=== PATIENT | female | born 1970 | race Caucasian/White ===

== ENCOUNTER 2016-07-11 17:05 | Emergency (ER) | payer BC, OTHER ==
[~2016-07-11] VITALS: Ht 157.5 cm; Wt 60.1 kg
[~2016-07-11 17:05] MED LIST: PROBCAP11 PO
[2016-07-11 17:18] VITALS: BP 125/88; PULSE 70; RESP 16; TEMP 97.9; O2SAT 100
[2016-07-11] MEDS ORDERED: SODIUM CHLOR 0.9% 1000 ML INJ 1,000 ML IV SCH (17:43)
[2016-07-11] MEDS ORDERED: ONDANSETRON HCL 4 MG/2 ML VIAL IVP ONE (17:45)
[2016-07-11] MEDS ORDERED: PANTOPRAZOLE SODIUM 40 MG VIAL IVP ONE (17:45)
--- NOTE | 2016-07-11 17:52 | PD ---
HPI Chief Complaint: Abdominal Pain Time Seen by Provider: 17:33 Travel History International Travel<30 days: No Contact w/Intl Traveler<30days: No Traveled to known affect area: No History of Present Illness HPI 45-year-old female complains of abdominal pain with nausea. Patient states that she started having abdominal bloating with low abdominal pressure for the past week. Patient started having sharp low abdominal pain this afternoon. Patient states that the pain was severe sharp pain constant pain localized to lower abdomen. Patient denies any pain radiation. Patient denies any vomiting or diarrhea. Patient denies any dysuria or frequency. Patient denies any vaginal discharge or bleeding. Patient status post endometrial ablation and tubal ligation in the past. Patient denies any history of GI issue. Patient denies any blood or mucus in the stool. On a scale of 1-10 the pain is a 3. Patient has history of irritable bowel syndrome. PFSH Past Medical History Cancer: No Diabetes: No Glaucoma: No Hepatitis: No Hiatal Hernia: No Hypertension: No Thyroid Disease: No ?: Not LMP: 2 weeks ago irregular Past Surgical History Gynecologic Surgery: Yes (D&C; TUBAL LIGATION) Social History Alcohol Use: No Tobacco Use: No Allergies-Medications (Allergen,Severity, Reaction): Coded Allergies: Erythromycin (Verified Allergy, Intermediate, vomiting, 07/11/16) Codeine (Verified Adverse Reaction, Mild, VOMITING, 07/11/16) Reported Meds & Prescriptions Reported Meds & Active Scripts Active Reported [Probiotic] 1 Cap PO DAILY Review of Systems General / Constitutional: No: Fever Eyes: No: Visual changes HENT: No: Headaches Cardiovascular: No: Chest Pain or Discomfort Respiratory: No: Shortness of Breath Gastrointestinal: Positive: Nausea, Abdominal Pain Genitourinary: No: Dysuria Musculoskeletal: No: Pain Skin: No Rash Neurologic: No: Weakness Psychiatric: No: Depression Endocrine: No: Polydipsia Hematologic/Lymphatic: No: Easy Bruising Physical Exam Narrative GENERAL: Well-nourished, well-developed patient. SKIN: Warm and dry. HEAD: Normocephalic. EYES: No scleral icterus. No injection or drainage. NECK: Supple, trachea midline. No JVD or lymphadenopathy. CARDIOVASCULAR: Regular rate and rhythm without murmurs, gallops, or rubs. RESPIRATORY: Breath sounds equal bilaterally. No accessory muscle use. GASTROINTESTINAL: Abdomen soft, nondistended. Patient has mild diffuse tenderness over the abdomen. No rebound tenderness. No mass. MUSCULOSKELETAL: No cyanosis, or edema. BACK: Nontender without obvious deformity. No CVA tenderness. Neurologic exam normal. Data Data Last Documented VS Vital Signs Date Time Temp Pulse Resp B/P Pulse Ox O2 Delivery O2 Flow Rate FiO2 07/11/16 19:20 82 16 142/77 100 Room Air 07/11/16 17:18 97.9 Orders Complete Blood Count With Diff (07/11/16 17:43) Lipase (07/11/16 17:43) Prothrombin Time / Inr (Pt) (07/11/16 17:43) Act Partial Throm Time (Ptt) (07/11/16 17:43) Urinalysis - C+S If Indicated (07/11/16 17:43) Ct Abd/Pel W Iv Contrast(Rout) (07/11/16 17:43) Iv Access Insert/Monitor (07/11/16 17:43) Ecg Monitoring (07/11/16 17:43) Oximetry (07/11/16 17:43) Ondansetron Inj (Zofran Inj) (07/11/16 17:45) Pantoprazole Inj (Protonix Inj) (07/11/16 17:45) Sodium Chlor 0.9% 1000 Ml Inj (Ns 1000 M (07/11/16 17:43) Comprehensive Metabolic Panel (07/11/16 17:52) Iohexol 350 Inj (Omnipaque 350 Inj) (07/11/16 19:53) Labs Laboratory Tests Test 07/11/16 07/11/16 17:48 17:52 Urine Collection Type VOIDED Urine Color STRAW Urine Turbidity CLEAR Urine pH 7.0 Urine Specific [place] 1.008 Urine Protein NEG mg/dL Urine Glucose (UA) NEG mg/dL Urine Ketones NEG mg/dL Urine Occult Blood TRACE Urine Nitrite NEG Urine Bilirubin NEG Urine Leukocyte Esterase NEG Urine RBC 0-2 /hpf Urine Squamous Epithelial 0-2 /hpf Cells Microscopic Urinalysis Comment CULT NOT INDICATED White Blood Count 4.7 TH/MM3 Red Blood Count 4.33 MIL/MM3 Hemoglobin 13.0 GM/DL Hematocrit 39.1 % Mean Corpuscular Volume 90.1 FL Mean Corpuscular Hemoglobin 30.0 PG Mean Corpuscular Hemoglobin 33.3 % Concent Red Cell Distribution Width 12.1 % Platelet Count 201 TH/MM3 Mean Platelet Volume 8.3 FL Neutrophils (%) (Auto) 55.8 % Lymphocytes (%) (Auto) 35.1 % Monocytes (%) (Auto) 6.6 % Eosinophils (%) (Auto) 1.6 % Basophils (%) (Auto) 0.9 % Neutrophils # (Auto) 2.6 TH/MM3 Lymphocytes # (Auto) 1.7 TH/MM3 Monocytes # (Auto) 0.3 TH/MM3 Eosinophils # (Auto) 0.1 TH/MM3 Basophils # (Auto) 0.0 TH/MM3 CBC Comment DIFF FINAL Differential Comment Prothrombin Time 10.8 SEC Prothromb Time International 1.0 RATIO Ratio Activated Partial 27.1 SEC Thromboplast Time Sodium Level 141 MEQ/L Potassium Level 3.7 MEQ/L Chloride Level 106 MEQ/L Carbon Dioxide Level 25.4 MEQ/L Anion Gap 10 MEQ/L Blood Urea Nitrogen 9 MG/DL Creatinine 0.59 MG/DL Estimat Glomerular Filtration 109 ML/MIN Rate Random Glucose 86 MG/DL Calcium Level 8.1 MG/DL Total Bilirubin 0.5 MG/DL Aspartate Amino Transf 11 U/L (AST/SGOT) Alanine Aminotransferase 13 U/L (ALT/SGPT) Alkaline Phosphatase 73 U/L Total Protein 6.8 GM/DL Albumin 3.6 GM/DL Lipase 126 U/L [facility] Medical Decision Making Medical Screen Exam Complete: Yes Emergency Medical Condition: Yes Interpretation(s) 184 PM. CBC within normal limit. Lipase 126. UA is negative. 2006 PM. CMP within normal limit. Differential Diagnosis Differential diagnosis including gastritis, PUD, pancreatitis, cholecystitis, colitis, UTI, pyelonephritis. Narrative Course 45-year-old female with diffuse abdominal pain, abdominal bloating and low abdominal pressure. Diagnosis Primary Impression: Abdominal colic Additional Impression: Ovarian cyst Qualified Code: N83.201 - Cyst of right ovary Patient Instructions: General Instructions Additional Instructions: Bentyl as needed. Tylenol as needed. 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 Return if worse. Med/Other Pt SpecificInfo: Prescription(s) given Scripts Dicyclomine (Bentyl)20 Mg Tab20 Mg PO TID #30 TAB Ref 0 Prov:Newton Weinberg MD 07/11/16 Disposition: DISCHARGE HOME Condition: Stable Newton Weinberg MD Jul 11, 2016 17:52
[2016-07-11 18:16] VITALS: O2SAT 98
[2016-07-11 18:19] LABS: BLOOD, URINE TRACE (NEG); GLUCOSE,URINE NEG (NEG); KETONE, URINE NEG (NEG); NITRITE,URINE NEG (NEG)
[2016-07-11 18:22] LABS: AUTOMATED NEUTROPHIL # 2.6 TH/MM3 (1.8-7.7); BASOPHIL % 0.9 % (0.0-2.0); EOSINOPHIL # 0.1 TH/MM3 (0-0.4); EOSINOPHIL % 1.6 % (0.0-4.0); HEMATOCRIT 39.1 % (35.0-46.0); HEMO FLAGS DIFF FINAL; LYMPH % 35.1 % (9.0-44.0); LYMPHOCYTE # 1.7 TH/MM3 (1.0-4.8); MEAN CELL VOLUME 90.1 FL (80.0-100.0); MEAN CORPUSCULAR HGB CONC 33.3 % (32.0-36.0); MONO % 6.6 % (0.0-8.0); NEUT % 55.8 % (16.0-70.0); PLATELET COUNT 201 TH/MM3 (150-450); RED BLOOD COUNT 4.33 MIL/MM3 (4.00-5.30); RED CELL DISTRIBUTION WIDTH 12.1 % (11.6-17.2); WHITE BLOOD COUNT 4.7 TH/MM3 (4.0-11.0)
[2016-07-11 18:33] LABS: APTT (PATIENT) 27.1 SEC (24.3-30.1); PROTHROMBIN TIME - PATIENT 10.8 SEC (9.8-11.6)
[2016-07-11 18:35] LABS: METHOD OF COLLECTION VOIDED; URINE COLOR STRAW (YELLW/STRAW)
[2016-07-11 18:37] LABS: COMMENT (UR) CULT NOT INDICATED; CULTURE IF INDICATED CULT NOT INDICATED; RBC, URINE 0-2 /hpf (0-3); SQUAMOUS EPITHELIAL CELL URINE 0-2 /hpf (0-5)
[2016-07-11 18:56] LABS: CHLORIDE 106 MEQ/L (98-107); POTASSIUM 3.7 MEQ/L (3.5-5.1); SODIUM (NA) 141 MEQ/L (136-145)
[2016-07-11 19:00] LABS: ANION GAP 10 MEQ/L (5-15); BICARBONATE 25.4 MEQ/L (21.0-32.0); BLOOD UREA NITROGEN 9 MG/DL (7-18)
[2016-07-11 19:03] LABS: ALT (GPT) 13 U/L (10-53); AST (GOT) 11 U/L (15-37); GLOMERULAR FILTRATION RATE 109 ML/MIN (>89)
[2016-07-11 19:05] LABS: TOTAL BILIRUBIN ADULT 0.5 MG/DL (0.2-1.0)
[2016-07-11 19:06] LABS: ALKALINE PHOSPHATASE 73 U/L (45-117)
[2016-07-11 19:20] VITALS: BP 142/77; PULSE 82; RESP 16; O2SAT 100
[2016-07-11] MEDS ORDERED: IOHEXOL 350 MG/ML 10 ML VIAL (for RAD DIAG) IV ONE (19:53)
--- NOTE | 2016-07-11 20:14 | RADHPO ---
EXAM DATE/TIME: 07/11/2016 19:47 [place] COMPARISON: No previous studies available for comparison. INDICATIONS : Lower abdominal pain. IV CONTRAST: 100 cc Omnipaque 350 (iohexol) IV ORAL CONTRAST: No oral contrast ingested. RADIATION DOSE: 6.82 CTDIvol (mGy) MEDICAL HISTORY : None SURGICAL HISTORY : Tubal ligation. Uterine ablation ENCOUNTER: Initial ACUITY: 1 day PAIN SCALE: 5/10 LOCATION: lower abdomen TECHNIQUE: Volumetric scanning of the abdomen and pelvis was performed. Using automated exposure control and ad justment of the mA and/or kV according to patient size, radiation dose was kept as low as reasonably achievable to obtain optimal diagnostic quality images. FINDINGS: LOWER LUNGS: Minimal bibasilar atelectasis. LIVER: Homogeneous density without dilation of the biliary tree. No calcified gallstones. Numerous subcenti meter low density lesions. SPLEEN: Normal size without lesion. PANCREAS: Within normal limits. KIDNEYS: Normal in size and shape. There is no mass, stone or hydronephrosis. ADRENAL GLANDS: Within normal limits. VASCULAR: There is no aortic aneurysm. BOWEL/MESENTERY: The stomach, small bowel, and colon demonstrate no acute abnormality. There is no free intraperitone al air or fluid. ABDOMINAL WALL: Within normal limits. RETROPERITONEUM: There is no lymphadenopathy. BLADDER: No wall thickening or mass. Mild distention. REPRODUCTIVE: 3.6 x 2.5 cm cystic structure right adnexa.. INGUINAL: There is no lymphadenopathy or hernia. MUSCULOSKELETAL: Within normal limits for patient age. CONCLUSION: 1. Cystic structure right adnexa measures 3.6 x 2.5 cm could be ovarian cyst or hydrosalpinx. Pelvic ultrasound may be warranted. 2. Numerous subcentimeter hepatic low densities, nonspecific but likely benign. Nonemergent outpatien t MRI recommended. 3. Mild distention of urinary bladder. Armani Mclean MD on July 11, 2016 at 20:09 Board Certified Radiologist. This report was verified electronically.
[2016-07-11] MEDS ORDERED: BENT20TA PO (20:25)
== END 2016-07-11 20:33 | disposition home or self-care (01) ==
LOC: PHED 17:05
DX: R10.84 Generalized abdominal pain (principal); N83.201 Unspecified ovarian cyst, right side
CPT/HCPCS: 74177; 80053; 81001; 83690; 85025; 85610; 85730; 96361; 96374; 96375; 99284; C9113; J2405; J7030; Q9967